=== PATIENT | male | born 1995 | race Caucasian/White ===

== ENCOUNTER 2025-05-28 09:10 | Emergency (ER) | payer MEDICAID, SELFPAY ==
--- NOTE | 2025-05-28 09:18 | EKG_ITS ---
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
--- NOTE | 2025-05-28 09:19 | XR_ITS ---
Examination: AP lateral chest 2 views TECHNIQUE: Sitting AP lateral chest 2 views Date and time: May 28, 2025 0943 hours INDICATIONS: Chest pain dizziness today. FINDINGS: Normal heart size The lungs are clear. The osseous structures are intact. IMPRESSION: No active disease.
[2025-05-28 09:21] VITALS: BP 138/85; PULSE 113; RESP 20; TEMP 37.2; O2SAT 100
--- NOTE | 2025-05-28 09:29 | XR_ITS ---
Examination: CT brain head without contrast. 2-D sagittal coronal reconstructions Date and time of exam:May 28, 2025 0959 hours INDICATIONS: Generalized head pain with dizziness beginning today CTDI: vol (mGy):45.8 DLP: (mGycm):878 Technique: Multiple CT axial sections of the brain have been obtained, 5 mm slice thickness. Contrast has not been administered. 2-D sagittal, coronal reconstructions have been obtained Low dose protocols were performed. One or more of the following dose reduction techniques were used; automated exposure control, adjustment of the mA and/or KV according to patient size, use of iterative reconstruction technique. Findings: No significant ventricular enlargement. Intra-axial or extra-axial hemorrhage density is not seen. No mass effect or midline shift Basal cisterns are not remarkable. Fourth ventricle is midline. Cranial vault intact. Impression: Negative for acute hemorrhage, mass effect or midline shift Advise clinical correlation follow-up accordingly.
[2025-05-28 10:15] LABS: Basophils # (Auto) 0.0 Thou/mm3 (0.0-0.2); Basophils % (Auto) 0 % (0-2.5); Eosinophils # (Auto) 0.0 Thou/mm3 (0.0-0.5); Eosinophils % (Auto) 0 % (0-10); Hematocrit 45.5 % (41.0-53.0); Hemoglobin 16.5 g/dL (13.5-16.0); Immature Granulocytes Auto 0.04 Thou/mm3 (0.00-0.00); Lymphocytes # (Auto) 1.3 Thou/mm3 (1.0-4.8); Lymphocytes % (Auto) 9 % (10-50); Mean Corpuscular HGB Conc 36.3 g/dl (31.0-37.0); Mean Corpuscular Hemoglobin 31.5 pg (25.0-35.0); Mean Corpuscular Volume 87 fL (80-100); Monocytes # (Auto) 0.6 Thou/mm3 (0.0-0.8); Monocytes % (Auto) 5 % (0-12); Neutrophils # (Auto) 12.0 Thou/mm3 (1.8-7.7); Neutrophils % (Auto) 86 % (37-80); Nucleated Red Blood Cell # 0.00 Thou/mm3 (0.00-0.00); Nucleated Red Blood Cell % 0 /100 WBC (0); Platelet Count 204 Thou/mm3 (140-440); RDW Standard Deviation 38.4 fL (35.1-43.9); Red Blood Count 5.23 Miln/mm3 (4.50-5.90); White Blood Count 14.0 Thou/mm3 (3.8-10.6)
[2025-05-28 10:30] LABS: INR 1.0 (0.9-1.3); Partial Thromboplastin Time 23.9 Seconds (22.0-36.0); Prothrombin Time 11.2 Seconds (9.0-12.2)
[2025-05-28 10:32] LABS: Alanine Aminotransferase 30 U/L (10-49); Albumin, Serum 5.4 gm/dL (3.5-5.0); Albumin/Globulin Ratio 1.9 (1.2-2.2); Alkaline Phosphatase 106 U/L (46-116); Anion Gap 14 (7-16); Aspartate Amino Transferase 24 U/L (0-34); BUN/Creatinine Ratio 13 Ratio (12-20); Bilirubin,Total 1.4 mg/dL (0.3-1.2); Blood Urea Nitrogen 13 mg/dL (9-23); Calcium 10.4 mg/dL (8.3-10.6); Calcium (Corrected) 10.4 mg/dL (8.5-10.1); Carbon Dioxide 21.6 mMol/L (20.0-31.0); Chloride 105 mMol/L (98-107); Creatinine (Component) 1.0 mg/dL (0.6-1.3); Globulin 2.9 gm/dL (2.3-3.5); Glucose 116 mg/dL (74-106); Magnesium 1.8 mg/dL (1.6-2.6); Osmolality,Calculated 282 (275-295); Potassium 3.2 mMol/L (3.4-5.1); Sodium 141 mMol/L (136-145); Total Protein 8.3 gm/dL (5.7-8.2); Troponin I < 0.002 ng/mL (0.0-0.045); eGFR > 60 See Note
[2025-05-28 11:02] LABS: B-Type Natriuretic Peptide < 20 pg/mL (0-100)
--- NOTE | 2025-05-28 12:29 | PD.EDRME ---
Rapid Medical Screening Exam RME Arrival date/time: 05/28/25 09:10 29-year-old male presents to the emergency department today for complaints of dizziness and fatigue Chief Complaint: Dizziness Vital signs: Vital Signs Temperature 99.0 F 05/28/25 09:21 Pulse Rate 113 H 05/28/25 09:21 Respiratory Rate 20 05/28/25 09:21 Blood Pressure 138/85 H 05/28/25 09:21 Pulse Oximetry (%) 100 05/28/25 09:21 Oxygen Delivery Method Room Air 05/28/25 09:21
[2025-05-28 14:13] VITALS: BP 152/80; PULSE 110; RESP 18; TEMP 36.8; O2SAT 100
--- NOTE | 2025-05-28 14:25 | EDNOTE_ITS ---
ED Chest Pain RME/HPI General Chief Complaint: Dizziness Stated Complaint: EXTREMELY LIGHTHEADED, CHEST PAIN, VOMITING Time Seen by Provider: 05/28/25 14:16 Source: patient Arrival date/time: 05/28/25 09:10 Mode of arrival: ambulatory Limitations: no limitations RME / HPI RME / HPI narrative: 29-year-old male who is here today with a 1 month history of chest pain, shortness of breath, and weakness. He states got worse today. He is here visiting from [facility] on a camping trip. He denies any lower leg edema. Has no recent long travels. Has no recent surgeries. No fevers or chills. No vomiting or urinary changes. He has possible history anxiety. He states he has had increased stressors and is currently unemployed. He states he is living with his father who is a physician and also here with him. He denies any thoughts of hurting himself or others. He has no chronic disease. He has no other acute complaints. Related Data Previous Rx's ?Medication ?Instructions ?Recorded hydroxyzine HCl 25 mg tablet 25 mg PO Q8H PRN anxiety #20 tabs 05/28/25 metoclopramide HCl 10 mg tablet 10 mg PO Q8H PRN nause a and 05/28/25 (Reglan) vomiting #10 tabs ondansetron 4 mg disintegrating 4 mg PO Q8H PRN nausea and 05/28/25 tablet vomiting 5 days #10 tabs Allergies Allergy/AdvReac Type Severity Reaction Status Date / Time lactose Allergy Severe Abdominal Verified 05/28/25 09:14 Pain Review of Systems Review of Systems Systems Reviewed: All systems reviewed, normal except as documented ED Exam General Limitations: Present no limitations General appearance: Present alert and in no apparent distress Head Head exam: Present atraumatic Eye Eye exam: Present normal appearance, PERRL and EOMI ENT ENT exam: Present normal exam, normal oropharynx and mucous membranes moist Neck Neck exam: Present normal inspection, full ROM and trachea midline Chest Chest inspection: Present normal inspection and symmetric chest wall rise Respiratory Respiratory exam: Present normal lung sounds bilaterally Cardiovascular Cardiovascular exam: Present regular rate, normal rhythm, tachycardia and normal heart sounds Abdominal Exam Abdominal exam: Present soft and normal bowel sounds Extremities Exam Extremities exam: Present normal inspection and full ROM Back Exam Back exam: Present normal inspection and full ROM Neurological Exam Neurological exam: Present alert and oriented X3 Psychiatric Psychiatric exam: Present normal affect and normal mood Skin Skin exam: Present warm, dry, intact and normal color Course Quality Measures none Orders Category Date 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 05/28/25 09:19 Active EKG (ED ONLY) *Do not use* NOW Care 05/28/25 09:[address] head/brain wo con Stat Exams 05/28/25 09:29 Completed EKG (ED Only) Stat Exams 05/28/25 09:18 Draft XR chest 2V Stat Exams 05/28/25 09:19 Completed B-Type Natriuretic Peptide Stat Lab 05/28/25 09:56 Completed CBC Stat Lab 05/28/25 09:56 Completed Comprehensive Metabolic Panel Stat Lab 05/28/25 09:56 Completed D-Dimer Stat Lab 05/28/25 14:54 Completed Drug Screen,Urine Stat Lab 05/28/25 15:07 Completed Magnesium Stat Lab 05/28/25 09:56 Completed Partial Thromboplastin Time Stat Lab 05/28/25 09:56 Completed Prothrombin Time with INR Stat Lab 05/28/25 09:56 Completed Troponin I Stat Lab 05/28/25 09:56 Completed Urinalysis Stat Lab 05/28/25 15:07 Completed Ondansetron Odt [Zofran Odt] Med 05/28/25 16:43 Once 4 mg PO X1 ONE Vital Signs Vital signs: Vital Signs Temperature 99.0 F 05/28/25 09:21 Pulse Rate 113 H 05/28/25 09:21 Respiratory Rate 20 05/28/25 09:21 Blood Pressure 138/85 H 05/28/25 09:21 Pulse Oximetry (%) 100 05/28/25 09:21 Oxygen Delivery Method Room Air 05/28/25 09:21 Chest Pain MDM Narrative MDM Narrative:: 29-year-old male who is here today with a 1 month history of chest pain, shortness of breath, and weakness. He states got worse today. He is here visiting from [facility] on a camping trip. He denies any lower leg edema. Has no recent long travels. Has no recent surgeries. No fevers or chills. No vomiting or urinary changes. He has possible history anxiety. He states he has had increased stressors and is currently unemployed. He states he is living with his father who is a physician and also here with him. He denies any thoughts of hurting himself or others. He has no chronic disease. He has no other acute complaints. On exam, patient is nontoxic-appearing. He has mild tachycardia 113 bpm, vital signs are otherwise unremarkable. Patient is anxious appearing and tearful. His work appears essentially unremarkable. His entire test results were made available for both himself and his father who is with him. There was request for hypertension Ativan. We discussed the hospital policy on using scheduled medications. I do believe this will be best provided and managed by his primary doctor. He will be discharged with a prescription of Reglan, Zofran, and hydroxyzine. He is asked to follow-up with his primary clinic when he returns to [facility]. Seek emergent care anytime for any worsening changes all questions were answered at this time. Patient data External records reviewed:: None Clinical information provided by:: patient and family Social determinants that could affect healthcare access:: substance use Patient has the following chronic illnesses:: Anxiety How is presenting disease/condition affected by chronic disease/condition?: exacerbated by Evaluation data The following diagnostics were reviewed and interpreted by me:: lab results (Mild leukocytosis and hypokalemia. Otherwise unremarkable), radiology exam(s) (Head CT is unremarkable. Chest x-ray was unremarkable) and EKG tracing(s) (EKG reveals mild sinus tachycardia with no ST changes or dynamic T waves.) Lab and/or radiology exams considered but not ordered:: n/a Interpretation Summary: Mild hypokalemia and leukocytosis Medications / Prescriptions Medications or Prescriptions considered but not ordered:: n/a Medication administrations:: Medication Administration History Ondansetron HCl (Ondansetron Odt 4 Mg Tabrap) 4 mg PO X1 ONE; Protocol Stop: 05/28/25 16:44 See above Consultations Consultation(s) initiated? (list below): No Diagnosis Chest Pain Differential Diagnosis: atypical chest pain, st elevation myocardial infarction, costochondritis and chest pain Most likely diagnosis given after review of the tests above:: Anxiety, hypokalemia Admission Indicated Admission indicated?: not indicated Admission Request Was there a request for admission?: No Disposition Plan Disposition Plan: Discharge Discharge Attestation Discharge Attestation: The patient and all family members were given an opportunity to ask questions and understood the discharge instructions. Discharge instructions specifically effects, indications for sooner follow up or return to the emergency department, and the expected course of current diagnosis. Patient condition: Stable Discharge Plan Plan Patient Disposition: HOME (Self Care) Patient condition on transfer: Stable Prescriptions/Referrals Prescriptions/Med Rec: New hydroxyzine HCl 25 mg tablet 25 mg PO Q8H PRN (Reason: anxiety) Qty: 20 0RF ondansetron 4 mg tablet,disintegrating 4 mg PO Q8H PRN (Reason: nausea and vomiting) 5 Days Qty: 10 0RF metoclopramide HCl [Reglan] 10 mg tablet 10 mg PO Q8H PRN (Reason: nausea and vomiting) Qty: 10 0RF Referrals: No Primary/Family,Physician [Primary Care Provider] - In 1 week Problem List Clinical Impression: Tachycardia, Anxiety, Acute hypokalemia Patient/Caregiver Discharge Instructions Education Materials: Anxiety Disorders Tx Therapy, Understanding Tachycardia, ED Potassium-Rich Foods Additional Instructions: - Maintain oral hydration. - Consume potassium rich foods. - Use the provided medication for symptomatic relief. - Follow-up with your primary doctor. - Seek emergent care for any worsening and changes as needed. Print Language: Ghanaian Stand Alone Forms: Suzanna Award Info., Patient Portal Info Letter
[2025-05-28 15:21] LABS: Collection Type, Urine Clean Catch; Squamous Epithelial Cell,Urine 0 /hpf (0-5)
[2025-05-28 15:28] LABS: Amorphous Crystals,Urine Present (Absent); Bacteria,Urine Rare; Bilirubin,Urine Negative (Negative); Blood,Urine Negative (Negative); Clarity,Urine Clear (Clear/Hazy); Color,Urine Yellow (Lt Yel-Yel); Glucose, Urine Negative (Negative); Ketones,Urine 4+ (Negative); Leukocyte Esterase,Urine Negative (Negative); Nitrite,Urine Negative (Negative); PH,Urine 7.0 (5.0-7.0); Protein,Urine 1+ (Neg - Trace); RBC,Urine 1 /hpf (0-3); Specific Gravity,Urine 1.038 (1.001-1.035); Urobilinogen,Urine Negative mg/dL (0.0-1.0); WBC,Urine 2 /hpf (0-5)
[2025-05-28 15:40] LABS: Amphetamine/Methamp Scrn,U Negative (Negative); Barbiturate Screen,Urine Negative (Negative); Benzodiazepines Screen,Urine Negative (Negative); Benzoylecgonine Screen, Ur Negative (Negative); Fentanyl Screen,Urine Negative (Negative); Opiate Screen,Urine Negative (Negative); THC Screen,Urine Positive (Negative)
[2025-05-28 15:59] LABS: D-Dimer < 250 ng/mL (<600)
[2025-05-28 16:29] VITALS: BP 144/93; PULSE 96; RESP 18; TEMP 36.8; O2SAT 100
[2025-05-28] MEDS: ONDANSETRON ODT 4 MG TABRAP PO (16:55)
== END 2025-05-28 17:13 | disposition home or self-care (01) ==
PROVIDERS: Nurse Practitioner Primary Care; Physician Assistant Medical; Emergency Provider Family Medicine
DX: E87.6 Hypokalemia (principal); F41.9 Anxiety disorder, unspecified; R00.0 Tachycardia, unspecified; R07.9 Chest pain, unspecified; R42 Dizziness and giddiness; D72.829 Elevated white blood cell count, unspecified; Z56.0 Unemployment, unspecified
CPT/HCPCS: 36415; 70450; 71046; 80053; 80307; 81001; 83735; 83880; 84484; 85025; 85379; 85610; 85730; 93005; 99283; Q0162; A9270